=== PATIENT | female | born 1960 | race African-American/Black ===

== ENCOUNTER 2017-02-03 09:31 | Emergency (ER) | payer BC ==
[~2017-02-03] VITALS: Ht 175.3 cm; Wt 106.6 kg
[2017-02-03 09:43] VITALS: BP 146/92
[2017-02-03] MEDS ORDERED: TENORMIN100 MG ORAL (09:51)
[2017-02-03] MEDS ORDERED: ASPIR-LOW81 MG ORAL (09:51)
[2017-02-03] MEDS ORDERED: NITROGLYCERIN0.4 MG SL (09:51)
[2017-02-03] MEDS ORDERED: ROBAXIN-750750 MG PO (10:21)
[2017-02-03 10:57] VITALS: BP 148/92
[2017-02-03 10:58] VITALS: BP 146/92
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
== END 2017-02-03 11:00 | disposition home or self-care (01) ==
LOC: EDBD 09:31 → EMR 10:33
DX: Z04.1 Encounter for examination and observation following transport accident (principal); I25.2 Old myocardial infarction
CPT/HCPCS: 99283

== ENCOUNTER 2017-08-14 10:28 | Day surgery (SDC) | payer BC ==
[2017-08-14] VITALS (13 sets, daily range): BP systolic 121–152; BP diastolic 66–93
[~2017-08-14] VITALS: Ht 175.3 cm; Wt 116.1 kg
--- NOTE | 2017-08-14 07:13 | Pre-Procedure Note/Attestation ---
Pre-Procedure Note/Attestation Complete Prior to Procedure Planned Procedure: left Procedure Narrative: shoulder arthroscopy, possible rct repair Indications for Procedure Pre-Operative Diagnosis: left shoulder rct/ impingement Attestation I attest that I discussed the nature of the procedure; its benefits; risks and complications; and alternatives (and the risks and benefits of such alternatives ), prior to the procedure, with the patient (or the patient's legal account services representative). I attest that, if there was a reasonable possibility of needing a blood transfusion, the patient (or the patient's legal account services representative) was given the [facility] standardized written summary, pursuant to the Edson Aleksey Blood Safety Act ([place] Health and Safety Code # 1645, as amended). I attest that I re-evaluated the patient just prior to the surgery and that there has been no change in the patient's H&P, except as documented below: KAROLINA STERN Aug 14, 2017 07:13
--- NOTE | 2017-08-14 07:13 | Operative Note - PDOC ---
Operative Note Operative Note Pre-op Diagnosis: left shoulder rct/ impingement Procedure: see op report Post-op Diagnosis: same as pre-op plus Operative Findings: consistent w/pre-op dx studies Anesthesia: MAC Specimen: none Complications: none Condition: stable Estimated Blood Loss: none Implant(s) used?: KAROLINA Flynn Aug 14, 2017 07:13
[~2017-08-14 10:28] MED LIST: ASPIR-LOW81 MG ORAL; NITROGLYCERIN0.4 MG SL; ROBAXIN-750750 MG PO; TENORMIN100 MG ORAL; ceFAZolin 1gm/50ml Premix 50 ML IV ONE; celeBREX 200mg Cap **SURGERY PATIENTS ONLY ORAL ONE; oxyCONTIN 20mg tab ORAL ONE
[2017-08-14] MEDS ORDERED: LR 1000ml 1,000 ML IVLG SCH ×2 (10:38→13:03)
[2017-08-14] MEDS ORDERED: Norco 7.5mg/325mg tab ORAL PRN (10:45)
[2017-08-14] MEDS ORDERED: LORazepam Inj 2mg/ml 1ml IV PRN (10:45)
[2017-08-14] MEDS ORDERED: Ketorolac 30mg Inj IV PRN ×2 (10:45→13:15)
[2017-08-14] MEDS ORDERED: Hydromorphone 0.5mg/0.5ml inj IVP PRN ×2 (10:45→13:15)
[2017-08-14] MEDS ORDERED: Midazolam 2mg/2ml Inj IVP PRN ×2 (10:45→13:15)
[2017-08-14] MEDS ORDERED: Metoclopramide 10mg/2ml Inj IVP PRN ×2 (10:45→13:15)
[2017-08-14] MEDS ORDERED: Atropine Inj 1mg/10ml Syr IV PRN (10:45)
[2017-08-14] MEDS ORDERED: oxyCODONE HCL/Acetaminophen 5/325mg ORAL PRN (10:45)
[2017-08-14] MEDS ORDERED: Norco 5mg/325mg tab ORAL PRN ×2 (10:45→16:01)
[2017-08-14] MEDS ORDERED: Ketorolac 60mg Inj IV PRN (10:45)
[2017-08-14] MEDS ORDERED: DiphenhydrAMINE 50mg/ml Inj IVP PRN ×2 (10:45→13:15)
[2017-08-14] MEDS ORDERED: fentaNYL 100 mcg/2 mL IV PRN ×2 (10:45→13:15)
--- NOTE | 2017-08-14 10:46 | Anethesia Preoperative Eval ---
Anesthesia Pre-op PMH/ROS General Date of Evaluation: Aug 14, 2017 Anesthesiologist: Mango ASA Score: ASA 3 Mallampati Score Class I : Soft palate, uvula, fauces, pillars visible Class II: Soft palate, uvula, fauces visible Class III: Soft palate, base of uvula visible Class IV: Only hard plate visible Mallampati Classification: Class II Surgeon: Naveen Diagnosis: L Shoulder Pain Surgical Procedure: L Shoulder Arthroscopy, RCR Anesthesia History: none Family History: no anesthesia problems Allergies: Coded Allergies: No Known Allergies (Unverified , 02/03/17) Medications: see eMAR Past Medical History Other: obesity - BMI 40 PSxH Narrative: R Breast Cyst SX, R Knee SX, ASHLEY Anesthesia Pre-op Phys. Exam Physician Exam Constitutional: NAD Neurologic: CN 2-12 intact Cardiovascular: RRR Respiratory: CTA Gastrointestinal: S/NT/ND Airway Exam Mallampati Score: Class II MO: limited ROM: limited Teeth: intact Anesthesia Pre-op A/P Risk Assessment & Plan Assessment: ASA 3 Plan: GA, BIS, L Supraclavicular Block Status Change Before Surgery: No Pre-Antibiotics Dru Grams Ancef IV Given Within 1 Hr of Incision: Yes Ryan Cobian MD Aug 14, 2017 10:46
--- NOTE | 2017-08-14 10:47 | Immediate Post-Op Evaluation ---
Immediate Post-Op Evalulation Immediate Post-Op Evalulation Procedure: L Shoulder Arthroscopy, RCR Date of Evaluation: Aug 14, 2017 Blood Products: 0 Pain Score (1-10): 1 Nausea: No Vomiting: No Complications 0 Patient Status: awake, reacts, patent, extubated, none Hydration Status: adequate Dru Grams Ancef IV Given Within 1 Hr of Incision: Yes Ryan Cobian MD Aug 14, 2017 10:47
--- NOTE | 2017-08-14 10:48 | 48 Hour Post Anesthesia Eval ---
Post Anesthesia Evaluation Procedure: L Shoulder Arthroscopy, RCR Date of Evaluation: Aug 14, 2017 Airway: patent Nausea: No Vomiting: No Pain Intensity: 1 Hydration Status: adequate Cardiopulmonary Status: Stable Mental Status/LOC: patient returned to baseline Follow-up Care/Observations: 0 Post-Anesthesia Complications: 0 Follow-up care needed: ready to discharge Ryan Cobian MD Aug 14, 2017 10:48
[2017-08-14] MEDS ORDERED: Bupivacaine 0.25% Inj 30ml INJ ONE ×2 (11:38→12:17)
[2017-08-14] MEDS ORDERED: EPINEPHrine 1mg/1ml Amp ONE (12:17)
[2017-08-14] MEDS ORDERED: fentaNYL 100 mcg/2 mL IV ONE (12:30)
[2017-08-14] MEDS ORDERED: Metoclopramide 10mg/2ml Inj ONE (12:30)
[2017-08-14] MEDS ORDERED: NS Irrig 4000ml IRRIG ONE ×2 (12:30→13:15)
[2017-08-14] MEDS ORDERED: Propofol 200mg/20ml IV ONE (12:30)
[2017-08-14] MEDS ORDERED: Ketorolac 30mg Inj ONE (12:30)
[2017-08-14] MEDS ORDERED: LR 1000ml ONE (12:30)
[2017-08-14] MEDS ORDERED: Midazolam 2mg/2ml Inj ONE (12:30)
[2017-08-14] MEDS ORDERED: Zemuron 50mg/5ml Inj IV ONE (12:30)
[2017-08-14] MEDS ORDERED: Ropivacaine 5mg/ml Vial 30ml INJ ONE (12:33)
--- NOTE | 2017-08-14 13:08 | Anethesia Preoperative Eval ---
Anesthesia Pre-op PMH/ROS General Date of Evaluation: Aug 14, 2017 Time of Evaluation: 12:23 Anesthesiologist: JOSE M ASA Score: ASA 2 Mallampati Score Class I : Soft palate, uvula, fauces, pillars visible Class II: Soft palate, uvula, fauces visible Class III: Soft palate, base of uvula visible Class IV: Only hard plate visible Mallampati Classification: Class II Surgeon: JARRED Diagnosis: Left [place] Derangement Surgical Procedure: Left Shoulder Arthroscopy Anesthesia History: none Family History: no anesthesia problems Allergies: Coded Allergies: No Known Allergies (Unverified , 08/14/17) Medications: see eMAR Anesthesia Pre-op Phys. Exam Physician Exam Last Vital Signs Date Time Temp Pulse Resp B/P (MAP) Pulse Ox O2 Delivery O2 Flow Rate FiO2 08/14/17 11:38 98.5 65 19 126/70 99 Room Air Constitutional: NAD Neurologic: CN 2-12 intact Cardiovascular: RRR Respiratory: CTA Gastrointestinal: S/NT/ND Airway Exam Mallampati Score: Class II ROM: full Teeth: intact Anesthesia Pre-op A/P Risk Assessment & Plan Plan: GA Interscalene Status Change Before Surgery: No Pre-Antibiotics Drug: Ancef Given Within 1 Hr of Incision: Yes Time Given: 13:15 Jef Blount M.D. Aug 14, 2017 13:08
--- NOTE | 2017-08-14 13:10 | Immediate Post-Op Evaluation ---
Immediate Post-Op Evalulation Immediate Post-Op Evalulation Procedure: L Shoulder Arthroscopy, RCR Date of Evaluation: Aug 14, 2017 Time of Evaluation: 14:30 IV Fluids: 1000 Blood Products: 0 Estimated Blood Loss: 0 Urinary Output: 0 Blood Pressure Systolic: 140 Blood Pressure Diastolic: 62 Pulse Rate: 82 Respiratory Rate: 16 O2 Sat by Pulse Oximetry: 99 Temperature (Fahrenheit): 98.2 Pain Score (1-10): 0 Nausea: No Vomiting: No Patient Status: awake, reacts, patent, extubated Drug: ANCEF Given Within 1 Hr of Incision: No Time Given: 13:15 Jef Blount M.D. Aug 14, 2017 13:09
--- NOTE | 2017-08-14 13:11 | 48 Hour Post Anesthesia Eval ---
Post Anesthesia Evaluation Procedure: L Shoulder Arthroscopy, RCR Date of Evaluation: Aug 16, 2017 Time of Evaluation: 12:00 Blood Pressure Systolic: 135 0: 63 Pulse Rate: 84 Respiratory Rate: 14 Temperature (Fahrenheit): 98 O2 Sat by Pulse Oximetry: 99 Airway: patent Nausea: No Vomiting: No Pain Intensity: 0 Hydration Status: adequate Mental Status/LOC: patient returned to baseline Post-Anesthesia Complications: NONE Follow-up care needed: patient intructions given Jef Blount M.D. Aug 14, 2017 13:11
[2017-08-14] MEDS ORDERED: Acetaminophen (Non formulary) 100 ML IV ONE (14:00)
[2017-08-14] MEDS ORDERED: D5 1/2NS 1,000 ML IV SCH (16:01)
[2017-08-14] MEDS ORDERED: Tylenol #3 tab (300mg/30mg) ORAL PRN (16:01)
[2017-08-14] MEDS ORDERED: HYDROmorphone 1mg/ml Carpuject SUBQ PRN (16:01)
--- NOTE | 2017-08-15 00:30 | Operative Note - Dictated ---
DATE OF OPERATION: 08/14/2017 PREOPERATIVE DIAGNOSES: 1. Left shoulder rotator cuff tear. 2. Left shoulder impingement syndrome. 3. Traumatic impingement syndrome. POSTOPERATIVE DIAGNOSES: 1. Left shoulder rotator cuff tear. 2. Left shoulder impingement syndrome. 3. Traumatic impingement syndrome. PROCEDURES: 1. Left shoulder arthroscopy and extensive intra-articular debridement. 2. Left shoulder subacromial decompression, bursectomy. SURGEON: Al Hodge M.D. ANESTHESIA: Interscalene with general. INDICATION FOR PROCEDURE: The patient is a pleasant female, who had significant injury to that shoulder, had continued ongoing pain and difficulty with activities. She had MRI, which showed a possible high-grade full-thickness rotator cuff tear. Given that she failed conservative treatment, she elected to undergo left shoulder arthroscopy and possible rotator cuff tear with subacromial decompression, bursectomy. Risks, limitations, expectations, and complications of the procedure were discussed in detail. All questions were addressed. DESCRIPTION OF PROCEDURE: An informed consent was obtained. The patient was brought to the operating room and placed under interscalene general anesthesia. Posterolateral stab incision was then made. Trocar was introduced into the glenohumeral joint. There was some fraying along the anterior labrum as well as the undersurface of the rotator cuff. The shaver was then placed into the glenohumeral joint and debridement of some of the tear along the anterior superior labrum was performed. Once that was done, the biceps tendon was subluxed into the joint and noted to be intact. Undersurface rotator cuff had some longitudinal tendinosis/tear. Shaver was then placed into this area and debridement was performed. Once that was done, the camera was repositioned in the subacromial space. The undersurface of the acromion was identified. Acromioplasty was started from lateral to medial, completing from posterior to anterior. Once that was done, the bursectomy was completed from the posterior aspect of the shoulder. At that point, the instruments were removed. Portal sites were closed using 3-0 Monocryl sutures. Steri-Strips and a sterile dressing were applied. The patient was awoken and taken to the recovery room with stable signs. ESTIMATED BLOOD LOSS: Minimal. COMPLICATIONS: None. SPECIMENS: None. IMPLANTS: None . Al Hodge M.D. DR: Mika JOB#: [id number] CC:
== END 2017-08-14 16:45 | disposition home or self-care (01) ==
LOC: SUR 10:28
DX: M75.42 Impingement syndrome of left shoulder (principal); M75.112 Incomplete rotator cuff tear or rupture of left shoulder, not specified as traumatic; I25.10 Atherosclerotic heart disease of native coronary artery without angina pectoris; E78.00 Pure hypercholesterolemia, unspecified; Z90.710 Acquired absence of both cervix and uterus
CPT/HCPCS: 29823; 29827; J0171; J0690; J1885; J2250; J2405; J2704; J2765; J2795; J3010; J3490; J7120; 94003; 94150

== ENCOUNTER 2017-08-23 04:11 | Emergency (ER) | payer BC ==
[~2017-08-23] VITALS: Ht 175.3 cm; Wt 116.1 kg
[~2017-08-23 04:11] MED LIST changes: -ceFAZolin 1gm/50ml Premix 50 ML IV ONE; -celeBREX 200mg Cap **SURGERY PATIENTS ONLY ORAL ONE; -oxyCONTIN 20mg tab ORAL ONE
[2017-08-23] MEDS ORDERED: NKM (04:25)
--- NOTE | 2017-08-23 04:39 | Emergency Room Report ---
History of Present Illness General Chief Complaint: Abdominal Pain Source: Patient Present Illness HPI 56-year-old female history of hysterectomy, recent left rotator cuff repair, p/ w abdominal pain nausea and vomiting for 6 days. Patient states pain started gradually, generalized, non radiating, burning in nature, intermittent. No relieving or exacerbating factors. Pt reports n/v, more than 5 episodes episodes of nbnb vomiting per day Denies fever chills Patient recently had a left rotator cuff repair on Thursday, she states that ever since then has not been able to keep anything down. Patient believes that she is taking [place] for the pain. Also complaining of constipation and not being able to pass any gas since 6 days ago Allergies: Coded Allergies: No Known Allergies (Unverified , 08/23/17) Patient History Past Medical History: see triage record Past Surgical History: none Pertinent Family History: none Last Menstrual Period: n/a Reviewed Nursing Documentation: PMH: Agreed, PSxH: Agreed Nursing Documentation-PMH Hx Cardiac Problems: Yes - congential heart disease Hx Hypertension: Yes Hx Cancer: No Hx Gastrointestinal Problems: No Hx Neurological Problems: No Review of Systems All Other Systems: negative except mentioned in HPI Physical Exam Vital Signs Date Time Temp Pulse Resp B/P (MAP) Pulse Ox O2 Delivery O2 Flow Rate FiO2 08/23/17 04:20 98.2 74 16 150/76 99 Room Air Sp02 EP Interpretation: reviewed, normal General Appearance: alert, GCS 15, non-toxic, mild distress Head: normocephalic, atraumatic Eyes: bilateral eye normal inspection, bilateral eye PERRL, bilateral eye EOMI ENT: normal ENT inspection, normal pharynx, normal voice, moist mucus membranes Neck: normal inspection, full range of motion, supple Respiratory: normal inspection, lungs clear, normal breath sounds, no respiratory distress, no retraction, no wheezing, speaking full sentences, chest symmetrical Cardiovascular #1: normal inspection, regular rate, rhythm, no edema, normal capillary refill Cardiovascular #2: 2+ radial (R), 2+ radial (L) Gastrointestinal: soft, non-distended, no guarding, other - Mild generalized abdominal tenderness, no guarding or rigidity Musculoskeletal: normal inspection, back normal, normal range of motion, non- tender Neurologic: normal inspection, alert, oriented x3, responsive, motor strength/ tone normal, sensory intact, normal gait, speech normal Psychiatric: normal inspection, judgement/insight normal, memory normal Skin: normal inspection, normal color, no rash, warm/dry, well hydrated, normal turgor Medical Decision Making ER Course 56-year-old female with abdominal pain nausea vomiting for 6 days Differential Diagnosis: Gastritis, gastroenteritis, appendicitis, diverticulitis, SBO, UTI/pyelo opiate induced constipation Plan: Basic labs, ua, ekg Zofran, IVF CT abdo pelvis with by mouth and IV contrast ER course: Patient has remained stable during ED stay. Pain improved. Repeat abdominal exam is nontender. Tolerating PO Disposition: Patient is to be discharged to home. Patient is instructed to follow up with their primary care doctor within 5 days. Strict return precautions discussed with patient such as fever, chills, worsening/severe abdominal pain, nausea, vomiting, black or bloody stools, which may indicate severe illness. Patient verbalizes understanding and agrees with plan. Please note that this Emergency Department Report was dictated using [employer] arm saw operator technology software, occasionally this can lead to erroneous entry secondary to interpretation by the dictation equipment EKG Diagnostic Results EP Interpretation: Yes Rate: normal Rhythm: NSR ST Segments: No acute changes ASA given to patient: No Rhythm Strip EP Interpretation: Yes Rate: 70 Rhythm: NSR, no PVCs, no ectopy Last Vital Signs Date Time Temp Pulse Resp B/P (MAP) Pulse Ox O2 Delivery O2 Flow Rate FiO2 08/23/17 04:20 98.2 74 16 150/76 99 Room Air Allyson Mahajan M.D. Aug 23, 2017 04:39
[2017-08-23 04:43] LABS: APPEARANCE,URINE CLEAR; BILIRUBIN, URINE NEGATIVE (NEGATIVE); GLUCOSE, URINE (UA) NEGATIVE (NEGATIVE); KETONES,URINE NEGATIVE (NEGATIVE); LEUKOCYTE ESTERASE ,URINE NEGATIVE (NEGATIVE); NITRITE,URINE NEGATIVE (NEGATIVE); PH,URINE 6 (4.5-8.0); PROTEIN,URINE 1+ (NEGATIVE); UROBILINOGEN,URINE 1 MG/DL (0.0-1.0)
[2017-08-23 04:53] LABS: COLOR,URINE YELLOW
[2017-08-23 05:12] VITALS: BP 138/76
[2017-08-23 05:45] LABS: BASOPHILS % (AUTO) 1.7 % (0.0-2.0); EOSINOPHILS % (AUTO) 1.2 % (0.0-3.0); HEMATOCRIT 42.5 % (37.0-47.0); HEMOGLOBIN 13.4 G/DL (12.0-16.0); LYMPHOCYTES % (AUTO) 28.4 % (20.0-45.0); MEAN CORPUSCULAR VOLUME 81 FL (80-99); MONOCYTES % (AUTO) 5.5 % (1.0-10.0); NEUTROPHILS % (AUTO) 63.3 % (45.0-75.0); PLATELET COUNT 269 K/UL (150-450); RED BLOOD COUNT 5.24 M/UL (4.20-5.40); RED CELL DISTRIBUTION WIDTH 13.9 % (11.6-14.8); WHITE BLOOD COUNT 8.2 K/UL (4.8-10.8)
[2017-08-23 06:03] LABS: ALANINE AMINOTRANSFERASE 25 U/L (12-78); ALBUMIN 3.8 G/DL (3.4-5.0); ALBUMIN/GLOBULIN RATIO 0.9 (1.0-2.7); ALKALINE PHOSPHATASE 68 U/L (46-116); ANION GAP 6 mmol/L (5-15); ASPARTATE AMINO TRANSFERASE 36 U/L (15-37); BILIRUBIN,TOTAL 0.5 MG/DL (0.2-1.0); BLOOD UREA NITROGEN 12 mg/dL (7-18); CALCIUM 9.4 MG/DL (8.5-10.1); CARBON DIOXIDE 27 MMOL/L (21-32); CHLORIDE 102 MMOL/L (98-107); CREATININE 1.3 MG/DL (0.55-1.30); POTASSIUM 5.5 MMOL/L (3.5-5.1); SODIUM 135 MMOL/L (136-145)
[2017-08-23 06:07] VITALS: BP 126/74
[2017-08-23 08:00] VITALS: BP 118/48
[2017-08-23] MEDS ORDERED: COLACE100 MG ORAL (08:40)
[2017-08-23 09:30] VITALS: BP 122/59
[2017-08-23 10:07] VITALS: BP 122/59
[2017-08-23] MEDS ORDERED: ZOFRAN4 MG ORAL (10:15)
--- NOTE | 2017-08-23 11:09 | Diagnostic Imaging Report ---
Indication: Abdominal pain with nausea and vomiting Technique: CT scan of the abdomen and pelvis was performed from the diaphragms to the symphysis pubis with intravenous contrast material and oral contrast material. Biphasic liver scanning was employed. 5 mm sections were generated. Axial, coronal, and sagittal images are presented. Dose: Total Dose Length Product - DLP [address] Dose Index - CTDIvol(s) 19.75 mGy. Comparison: None Findings: The liver is normal. The gallbladder is unremarkable. The spleen is normal. The pancreas is normal. Adrenal glands are unremarkable. The kidneys are normal. The retroperitoneum is free of adenopathy. The bowel is normal. There is no evidence of fluid in the abdomen. The appendix is normal. There has been previous hysterectomy. The ovaries are not identified. The bladder is normal. Impression: Hysterectomy. Normal appendix. Otherwise negative. No acute abnormality. The CT scanner at [facility] is accredited by the [employer] and the scans are performed using protocols designed to limit radiation exposure to as low as reasonably achievable to attain images of sufficient resolution adequate for diagnostic evaluation.
--- NOTE | 2017-08-24 20:18 | Cardiology Report ---
APPROVED REPORT EKG Measurement Heart [id number] 180P68 [id number] Normal sinus rhythm Cannot rule out Anterior infarct, age undetermined Abnormal ECG
--- NOTE | 2017-08-24 20:18 | Cardiology Report ---
APPROVED REPORT EKG Measurement Heart [id number] 180P68 [id number] Normal sinus rhythm Cannot rule out Anterior infarct, age undetermined Abnormal ECG
--- NOTE | 2017-08-24 20:18 | Cardiology Report ---
APPROVED REPORT EKG Measurement Heart [id number] 180P68 [id number] Normal sinus rhythm Cannot rule out Anterior infarct, age undetermined Abnormal ECG
== END 2017-08-23 10:07 | disposition home or self-care (01) ==
LOC: EMR 04:38
DX: R10.9 Unspecified abdominal pain (principal); R11.2 Nausea with vomiting, unspecified; I10 Essential (primary) hypertension
CPT/HCPCS: 36415; 74177; 80053; 81003; 83690; 85025; 93005; 96361; 96374; 96375; 99284; J2405; Q9967; S0028

== ENCOUNTER 2018-05-28 09:14 | Day surgery (SDC) | payer BC ==
[~2018-05-28] VITALS: Ht 175.3 cm; Wt 119.7 kg
[2018-05-28] VITALS (11 sets, daily range): BP systolic 121–159; BP diastolic 66–81
[~2018-05-28 09:14] MED LIST changes: +COLACE100 MG ORAL; +NKM; +ZOFRAN4 MG ORAL; +ceFAZolin 1gm in D5W 55ml IVP SCH; +celeBREX 200mg Cap **SURGERY PATIENTS ONLY ORAL SCH; +oxyCONTIN 20mg tab ORAL SCH
[2018-05-28] MEDS ORDERED: celeBREX 200mg Cap **SURGERY PATIENTS ONLY ORAL ONE (09:51)
[2018-05-28] MEDS ORDERED: oxyCONTIN 20mg tab ORAL ONE (09:51)
[2018-05-28] MEDS ORDERED: MULTIVITAMINS1 EAC2 ORAL (10:08)
[2018-05-28] MEDS ORDERED: B COMPLEX1 EACH ORAL (10:08)
[2018-05-28] MEDS ORDERED: PROBIOTIC1 EAC2 PO (10:08)
--- NOTE | 2018-05-28 11:28 | Pre-Procedure Note/Attestation ---
Pre-Procedure Note/Attestation Complete Prior to Procedure Planned Procedure: left Procedure Narrative: shoulder arthroscopic palomares capsular release Indications for Procedure Pre-Operative Diagnosis: left shoulder adhesive capsilitis Attestation I attest that I discussed the nature of the procedure; its benefits; risks and complications; and alternatives (and the risks and benefits of such alternatives ), prior to the procedure, with the patient (or the patient's legal graphic art sales representative). I attest that, if there was a reasonable possibility of needing a blood transfusion, the patient (or the patient's legal graphic art sales representative) was given the [facility] standardized written summary, pursuant to the Edson Aleksey Blood Safety Act ([place] Health and Safety Code # 1645, as amended). I attest that I re-evaluated the patient just prior to the surgery and that there has been no change in the patient's H&P, except as documented below: Al Hodge MD May 28, 2018 11:28
--- NOTE | 2018-05-28 11:29 | Operative Note - PDOC ---
Operative Note Operative Note Pre-op Diagnosis: left shoulder adhesive capsilitis Procedure: see op report Post-op Diagnosis: same as pre-op plus Operative Findings: consistent w/pre-op dx studies Anesthesia: regional Specimen: none Complications: none Condition: stable Estimated Blood Loss: none Implant(s) used?: No Al Hodge MD May 28, 2018 11:29
[2018-05-28] MEDS ORDERED: HYDROmorphone 1mg/ml Carpuject SUBQ PRN (11:30)
[2018-05-28] MEDS ORDERED: Norco 5mg/325mg tab ORAL PRN (11:30)
[2018-05-28] MEDS ORDERED: D5 1/2NS 1,000 ML IV SCH (11:30)
[2018-05-28] MEDS ORDERED: Tylenol #3 tab (300mg/30mg) ORAL PRN (11:30)
[2018-05-28] MEDS ORDERED: EPINEPHrine 1mg/1ml Amp ONE (11:43)
[2018-05-28] MEDS ORDERED: Bupivacaine 0.5% Inj 30 ml vial INJ ONE ×2 (11:43→12:17)
[2018-05-28] MEDS ORDERED: Lidocaine 1% 10mg/ml/EPI 0.01mg/ml 50ml INJ ONE (11:45)
[2018-05-28] MEDS ORDERED: Phenylephrine 0.25% Nasal Spray NASAL ONE (11:46)
[2018-05-28] MEDS ORDERED: NS Irrig 4000ml IRRIG ONE (12:00)
[2018-05-28] MEDS ORDERED: Acetaminophen IV (Non formulary) 1,000 MG/100 ML ML IV ONE (12:00)
[2018-05-28] MEDS ORDERED: Propofol 1,000mg/ 100ml btl IV ONE (12:00)
[2018-05-28] MEDS ORDERED: Midazolam 2mg/2ml Inj ONE (12:15)
[2018-05-28] MEDS ORDERED: fentaNYL 100 mcg/2 mL IV ONE (12:17)
[2018-05-28] MEDS ORDERED: Propofol 200mg/20ml IV ONE (12:57)
[2018-05-28] MEDS ORDERED: Ropivacaine 5mg/ml Vial 30ml INJ ONE (12:57)
[2018-05-28] MEDS ORDERED: Lidocaine 1% MPF 10mg/ml 5ml ONE (12:57)
[2018-05-28] MEDS ORDERED: Dexamethasone 4mg/ml vial ONE (12:57)
[2018-05-28] MEDS ORDERED: Metoclopramide 10mg/2ml Inj ONE (12:57)
[2018-05-28] MEDS ORDERED: Morphine Sulfate PF 10 ML ONE (13:25)
[2018-05-28] MEDS ORDERED: Kenalog-40 1ml Vial ONE (13:25)
[2018-05-28] MEDS ORDERED: Ketorolac 30mg Inj ONE (13:25)
[2018-05-28] MEDS ORDERED: Duramorph PF 10mg/10ml amp IV ONE (13:25)
--- NOTE | 2018-05-28 13:33 | Anethesia Preoperative Eval ---
Anesthesia Pre-op PMH/ROS General Date of Evaluation: May 28, 2018 Time of Evaluation: 12:44 Anesthesiologist: vikas ASA Score: ASA 2 Mallampati Score Class I : Soft palate, uvula, fauces, pillars visible Class II: Soft palate, uvula, fauces visible Class III: Soft palate, base of uvula visible Class IV: Only hard plate visible Mallampati Classification: Class II Surgeon: elvie Diagnosis: left shoulder pain Surgical Procedure: Left shoulder arthroscopy Anesthesia History: PONV Family History: no anesthesia problems Allergies: Coded Allergies: No Known Allergies (Unverified , 08/23/17) Medications: see eMAR Past Medical History Cardiovascular: Reports: HTN, CAD, other - angioplasty 2006 Pulmonary: Denies: asthma, COPD, YOHAN, other Gastrointestinal/Genitourinary: Denies: GERD, CRI, ESRD, other Neurologic/Psychiatric: Denies: dementia, CVA, depression/anxiety, TIA, other Endocrine: Denies: DM, hypothyroidism, steroids, other HEENT: Denies: cataract (L), cataract (R), glaucoma, [place] (L), [place] (R), other Musculoskeletal/Integumentary: Reports: OA, DJD, other - preexisting numbness and tingling left arm; Denies: RA, DDD, edema Other: obesity PMH Narrative: chronic pain; limited neck mobility with paresthesia Anesthesia Pre-op Phys. Exam Physician Exam Last Vital Signs Date Time Temp Pulse Resp B/P (MAP) Pulse Ox O2 Delivery O2 Flow Rate FiO2 05/28/18 09:44 Room Air 05/28/18 09:42 97.5 64 18 121/66 (84) 99 97.5 Constitutional: NAD Neurologic: CN 2-12 intact Cardiovascular: RRR Respiratory: CTA Gastrointestinal: S/NT/ND Airway Exam Mallampati Classification 3 Mallampati Score: Class III Neck: thick TMD: 2fb ROM: limited Dentures: no upper, no lower Anesthesia Pre-op A/P Studies Pre-op Studies: EKG - sr Risk Assessment & Plan Assessment: denies cp /sob Plan: general+glidescope + ISB Status Change Before Surgery: No Pre-Antibiotics Drug: ancef Given Within 1 Hr of Incision: Yes Mendy Grant CRNA May 28, 2018 13:33
--- NOTE | 2018-05-28 14:10 | Immediate Post-Op Evaluation ---
Immediate Post-Op Evalulation Immediate Post-Op Evalulation Procedure: left shoulder arthroscopy Date of Evaluation: May 28, 2018 Time of Evaluation: 14:00 IV Fluids: 700 Blood Products: 0 Estimated Blood Loss: 5 Blood Pressure Systolic: 159 Blood Pressure Diastolic: 64 Pulse Rate: 65 Respiratory Rate: 14 O2 Sat by Pulse Oximetry: 100 Temperature (Fahrenheit): 97.5 Pain Score (1-10): 0 Nausea: No Vomiting: No Patient Status: awake, reacts, patent Hydration Status: adequate Drug: ancef Given Within 1 Hr of Incision: Yes Mendy Grant CRNA May 28, 2018 14:10
[2018-05-28] MEDS ORDERED: Neostigmine 1mg/ml 10ml Inj ONE (14:17)
[2018-05-28] MEDS ORDERED: Glycopyrrolate 0.2mg/ml 1ml Vial ONE (14:19)
--- NOTE | 2018-05-28 15:54 | 48 Hour Post Anesthesia Eval ---
Post Anesthesia Evaluation Procedure: left shoulder arthroscopy Date of Evaluation: May 28, 2018 Time of Evaluation: 15:53 Blood Pressure Systolic: 141 0: 73 Pulse Rate: 56 Respiratory Rate: 14 O2 Sat by Pulse Oximetry: 98 Airway: patent Nausea: No Vomiting: No Hydration Status: adequate Cardiopulmonary Status: stable Mental Status/LOC: patient returned to baseline Follow-up Care/Observations: na Post-Anesthesia Complications: none Follow-up care needed: N/A Mendy Grant CRNA May 28, 2018 15:54
--- NOTE | 2018-06-03 09:01 | Operative Note - Dictated ---
DATE OF OPERATION: 05/28/2018 PREOPERATIVE DIAGNOSIS: Left shoulder adhesive capsulitis. POSTOPERATIVE DIAGNOSIS: Left shoulder adhesive capsulitis. PROCEDURES: 1. Left shoulder diagnostic arthroscopy. 2. Left shoulder pancapsular release. SURGEON: Al Hodge M.D. ANESTHESIA: Interscalene with general. INDICATION: The patient is a pleasant 49-year-old female, who underwent a subacromial decompression bursectomy. She subsequently had significant stiffness in the left shoulder postoperatively despite conservative treatment including physical therapy and injection. After failed conservative treatment, she has elected to undergo manipulation under anesthesia, diagnostic arthroscopy, and pancapsular release. Risks, limitations, expectations, and complications of the procedure were discussed in detail. All questions addressed. DESCRIPTION OF PROCEDURE: After informed consent was obtained, the patient was brought to the operating room and placed under a general anesthesia with interscalene block. Left shoulder was prepped and draped in a sterile manner. Previous skin incision marked out. At this point, examination under anesthesia showed forward elevation was 160, shoulder abduction of 80 degrees, external rotation was 70, and internal rotation was 60. Somewhat difficult to perform further manipulation, therefore, it was felt that pancapsule would be more appropriate. An inferolateral stab incision was then made. Trocar was introduced into the shoulder. An anterior working portal was established and release of the rotator interval was performed. Once that was done, the remaining shoulder was evaluated to make sure that it was intact. There was no significant internal derangement to the cartilage, labrum, superior biceps tendon, or undersurface of the rotator cuff. At this point, the camera was positioned in the anterior portal and a release of the posterior capsule was performed with care. Once that was done, the instruments were repositioned in the subacromial space. There was no significant bursitis and the patient had previous acromioplasty performed, therefore, did not require any additional treatment. At this point, the instruments were removed. The subacromial injection containing 40 mg of Kenalog, 30 mg of Toradol, 5 mL of Duramorph, and Marcaine was injected into the shoulder. Sutures were closed with 3-0 Monocryl sutures. Steri-Strips and a sterile dressing were applied. The patient was awoken and taken to recovery room with stable vital signs. ESTIMATED BLOOD LOSS: None. COMPLICATIONS: None. SPECIMENS: None. IMPLANTS: None. Al Hodge M.D. DR: REINIER JOB#: [id number] CC: [id number]
== END 2018-05-28 16:20 | disposition home or self-care (01) ==
LOC: SUR 09:14
DX: M75.02 Adhesive capsulitis of left shoulder (principal); I10 Essential (primary) hypertension; I25.10 Atherosclerotic heart disease of native coronary artery without angina pectoris; M19.90 Unspecified osteoarthritis, unspecified site; E66.9 Obesity, unspecified; G89.29 Other chronic pain; R20.2 Paresthesia of skin; Z98.61 Coronary angioplasty status
CPT/HCPCS: 29825; J0171; J0690; J1100; J1885; J2250; J2274; J2405; J2704; J2710; J2765; J2795; J3010; J3301; J3490; 94003; 94150